=== PATIENT | female | born 1990 | race Two or more races ===

== ENCOUNTER 2018-05-23 05:08 | Emergency (ER) | payer BC ==
[~2018-05-23] VITALS: Ht 160 cm; Wt 70.3 kg
[2018-05-23] MEDS ORDERED: ONDANSETRON 4 MG/2 ML VIAL ONE ×2 (05:27→06:28)
[2018-05-23] MEDS ORDERED: IV NORMAL SALINE 1000 ML BAG IV ONE (05:30)
[2018-05-23] MEDS ORDERED: ONDANSETRON 4 MG/2 ML VIAL IV ONE (05:30)
[2018-05-23 06:01] LABS: CREATININE 0.8 mg/dL (0.6-1.3); POTASSIUM 4.1 mmol/L (3.5-5.1)
[2018-05-23 06:15] LABS: BILIRUBIN,DIRECT 0.1 mg/dL (0.0-0.2); BILIRUBIN,TOTAL 0.6 mg/dL (0.2-1.0); TOTAL PROTEIN, SERUM 8.3 g/dL (6.4-8.2)
[2018-05-23] MEDS ORDERED: ONDANSETRON IV *ER 4 MG/2 ML VIAL IV ONE (06:30)
[2018-05-23] MEDS ORDERED: METOCLOPRAMIDE HCL 10 MG/2 ML VIAL ONE (07:08)
[2018-05-23 07:10] LABS: EOSINOPHILS # (AUTO) 0.1 K/uL (0.0-0.7)
--- NOTE | 2018-05-23 07:13 | NUR ---
SBAR to AMANDA Henriquez
[2018-05-23] MEDS ORDERED: METOCLOPRAMIDE HCL 10 MG/2 ML VIAL IV ONE (07:15)
--- NOTE | 2018-05-23 07:16 | NUR ---
assumed patient care 28 years old female presents to er with nausea vomiting condition improved vital stable tolerated PO intake well.
[2018-05-23 07:22] LABS: LYMPHOCYTES # (AUTO) 0.7 K/uL (20.0-40.0)
[2018-05-23 07:30] LABS: BASOPHILS # (AUTO) 0.1 K/uL (0.0-8.0); HEMATOCRIT 45.5 % (31.2-41.9); HEMOGLOBIN 15.8 g/dL (10.9-14.3); MEAN CORPUSCULAR HEMOGLOBIN 29.6 uug (24.7-32.8); MEAN CORPUSCULAR HGB CONC 35 g/dL (32.3-35.6); MONOCYTES # (AUTO) 0.7 K/uL (2.0-10.0); NEUTROPHILS # (AUTO) 16.7 K/uL (1.8-8.9); PLATELET COUNT (AUTO) 244 K/uL (179-408); RED BLOOD CELL COUNT(AUTO) 5.35 MIL/uL (3.63-4.92); WHITE BLOOD COUNT (AUTO) 18.2 K/uL (3.8-11.8)
[2018-05-23 07:49] LABS: BAND % (MANUAL) 2 % (0-10); LYMPHOCYTES % (MANUAL) 11 % (20-40); MONOCYTES % (MANUAL) 9 % (2-10); NEUTROPHILS % (MANUAL) 78 % (42-75)
[2018-05-23 08:52] VITALS: BP 100/50
--- NOTE | 2018-05-23 08:53 | NUR ---
patient condition stable no nausea vomiting abdominal pain d/c home with instructions after care reviewed understood left er alert, oriented x4 ambulatory with steady gait.
== END 2018-05-23 08:54 | disposition home or self-care (01) ==
LOC: ER 05:09
DX: R11.2 Nausea with vomiting, unspecified (principal)
CPT/HCPCS: 36415; 80048; 80076; 83690; 84702; 85025; 96361; 96374; 96375; 96376; 99283; J2405 ×2; J2765; A4663; J7030